=== PATIENT | male | born 1955 | race Caucasian/White ===

== ENCOUNTER → 2020-12-16 | Outpatient (CLI) | payer MEDICARE, OTHER ==
[2017-11-25 08:59] VITALS: BP 141/85
[~2020-12-16] MED LIST: AMLO-186 PO; FLUT9.9S NS; INSU100I13 SQ; OXYM30SP25 NS
[2020-12-16 14:40] LABS: BASO # 0.1 x10^3/uL (0.0-0.2); BASO % 1 % (0-3); EOS # 0.3 x10^3/uL (0.0-0.7); EOS % 3 % (0-3); HEMATOCRIT 44.4 % (39.0-53.0); HEMOGLOBIN 15.4 g/dL (13.0-17.5); LYMPH # 2.8 x10^3/uL (1.0-4.8); LYMPH % 29 % (24-48); MEAN CORPUSCULAR HEMOGLOBIN 29 pg (25-35); MEAN CORPUSCULAR HGB CONC 35 g/dL (31-37); MEAN CORPUSCULAR VOLUME 85 fL (79-100); MONO % 10 % (0-9); NEUT # 5.6 x10^3/uL (1.8-7.7); NEUT % 57 % (31-73); PLATELET COUNT 295 x10^3/uL (140-400); RED BLOOD COUNT 5.23 x10^6/uL (4.30-5.70); RED CELL DISTRIBUTION WIDTH 14.2 % (11.5-14.5); WHITE BLOOD COUNT 9.9 x10^3/uL (4.0-11.0)
[2020-12-16 16:08] LABS: PLT ESTIMATE ADEQUATE (ADEQUATE)
[2020-12-17 14:11] LABS: KAPPA FREE 42.4 mg/L (3.3-19.4); KAPPA LAMBDA RATIO 1.84 (0.26-1.65); LAMBDA FREE 23.1 mg/L (5.7-26.3)
[2020-12-18 15:17] LABS: ALBUM 3.7 g/dL (2.9-4.4); ALPHA 1 0.3 g/dL (0.0-0.4); ALPHA 2 0.8 g/dL (0.4-1.0); BETA 1.1 g/dL (0.7-1.3); GAMMA 1.5 g/dL (0.4-1.8); PROTEIN TOTAL 7.4 g/dL (6.0-8.5)
== END ==
LOC: ONCLAB 14:20
PROVIDERS: ATTEND Internal Medicine Hematology & Oncology
DX: D72.828 Other elevated white blood cell count (principal)
CPT/HCPCS: 36415; 83520; 84165; 85025; 88184; 88185; 88374